=== PATIENT | female | born 1985 | race Caucasian/White ===

== ENCOUNTER 2023-06-14 01:20 | Inpatient (IN) | payer OTHER ==
[~2023-06-14] VITALS: Ht 172.7 cm; Wt 131.1 kg
[2023-06-14 01:30] VITALS: BP 117/66; PULSE 85; RESP 18; TEMP 97.9
[2023-06-14] MEDS ORDERED: CARBOPROST 250 MCG/ML AMP IM PRN (01:45)
[2023-06-14] MEDS ORDERED: LACTATED RINGERS 500 ML IV SCH (01:45)
[2023-06-14] MEDS ORDERED: METHYLERGONOVINE 0.2 MG/ML AMP IM PRN ×2 (01:45→09:35)
[2023-06-14 02:11] LABS: APPEARANCE,URINE CLEAR (CLEAR); BILIRUBIN,URINE NEGATIVE (NEGATIVE); BLOOD, URINE TRACE-I (NEGATIVE); COLOR,URINE YELLOW (YELLOW); LEUKOCYTE ESTERASE ,URINE NEGATIVE (NEGATIVE); NITRITE, URINE NEGATIVE (NEGATIVE); PROTEIN,URINE NEGATIVE (NEGATIVE); UGLUCOSE NEGATIVE (NEGATIVE); UROBILINOGEN,URINE 0.2 EU/dL (0.2 - 1)
[2023-06-14 02:13] LABS: BASOPHILS % (AUTO) 0.4 % (0.0-2.0); EOSINOPHILS # (AUTO) 0.1 K/uL (0-0.4); EOSINOPHILS % (AUTO) 0.6 % (0.0-4.0); HEMATOCRIT 38.7 % (36-48); HEMOGLOBIN 13.1 g/dL (12.0-16.0); LYMPHOCYTES % (AUTO) 25.3 % (20.5-51.1); MEAN CORPUSCULAR HEMOGLOBIN 30 pg (27-31); MEAN CORPUSCULAR HGB CONC 34 g/dL (33-37); MEAN CORPUSCULAR VOLUME 87.2 fL (80-94); MONOCYTES # (AUTO) 1.2 K/uL (0.8-1.0); MONOCYTES % (AUTO) 9.8 % (1.7-9.3); NEUTROPHILS # (AUTO) 7.7 K/uL (1.8-7.7); NEUTROPHILS % (AUTO) 63.9 % (42.2-75.2); PLATELET COUNT (AUTO) 227 K/uL (140-450); RED BLOOD CELL COUNT(AUTO) 4.44 MIL/uL (4.20-5.40)
[2023-06-14 02:15] LABS: BACTERIA,URINE FEW /HPF (None Seen); MUCUS,URINE 1+ /LPF (None Seen); WBC,URINE 0-5 /HPF (0-5)
[2023-06-14] MEDS ORDERED: OXYTOCIN 20 UNITS/LR PREMIX 1,000 ML IV ONE (02:24)
[2023-06-14 02:27] LABS: INR 0.87 (0.8-1.2); PARTIAL THROMBOPLASTIN TIME 24.5 secs (22-35.6); PROTHROMBIN TIME 9.2 secs (10.8-13.4)
[2023-06-14 02:29] LABS: ALBUMIN 2.4 g/dL (3.4-5.0); ANION GAP 9.1 (8-16); CALCIUM 9.1 mg/dL (8.5-10.1); CREATININE 0.9 mg/dL (0.6-1.3); POTASSIUM 4.1 mmol/L (3.5-5.1); TOTAL BILIRUBIN 0.3 mg/dL (0.0-1.0); TOTAL PROTEIN, SERUM 7.7 g/dL (6.4-8.2)
[2023-06-14] MEDS ORDERED: AMPICILLIN 2,000 MG VIAL ONE (02:30)
[2023-06-14] MEDS: LACTATED RINGERS 1,000 ML IV SCH (02:37)
[2023-06-14] MEDS: AMPICILLIN 2,000 MG in NACL 0.9% MINI-BAG PLUS 100 ML IV SCH (02:42)
[2023-06-14] MEDS: OXYTOCIN 20 UNITS in LACTATED RINGERS 1,000 ML IV SCH (02:48)
[2023-06-14] MEDS ORDERED: AMPICILLIN 1,000 MG in NACL 0.9% MINI-BAG PLUS 50 ML IV SCH (04:00)
[2023-06-14] MEDS ORDERED: VITAMIN D (04:56)
[2023-06-14] MEDS ORDERED: FERR-252 PO (04:56)
[2023-06-14] MEDS ORDERED: PREN-543 PO (04:56)
[2023-06-14] MEDS ORDERED: MAGNESIUM (04:56)
[2023-06-14] MEDS ORDERED: LIDOCAINE 1% 500 MG/50 ML VIAL ONE (05:24)
[2023-06-14 05:27] VITALS: BP 146/76; PULSE 77
[2023-06-14] MEDS: MORPHINE SULFATE 10 MG/ML VIAL IVP PRN (05:27)
[2023-06-14] MEDS: ONDANSETRON 4 MG/2 ML VIAL IVP PRN (05:28)
[2023-06-14] MEDS ORDERED: AMPICILLIN 1,000 MG VIAL ONE (06:43)
[2023-06-14] MEDS ORDERED: METHYLERGONOVINE 0.2 MG TAB PO PRN (09:35)
[2023-06-14] MEDS ORDERED: OXYTOCIN 10 UNITS/ML VIAL IM PRN (09:35)
[2023-06-14] MEDS ORDERED: MEASLES, MUMPS, AND RUBELLA 1 VIAL SQVAC ONE (09:35)
[2023-06-14] MEDS ORDERED: IBUPROFEN 800 MG TAB PO PRN (09:35)
[2023-06-14] MEDS ORDERED: BENZOCAINE/MENTHOL 20%-0.5% 60 GM CAN TP PRN (09:35)
[2023-06-15 05:51] LABS: HEMATOCRIT 32.9 % (36-48); HEMOGLOBIN 11.4 g/dL (12.0-16.0)
== END 2023-06-15 14:06 | disposition home or self-care (01) | DRG 560 ==
LOC: MLD 01:20 → MFCC 08:46
PROVIDERS: ADMIT Obstetrics & Gynecology; ATTEND Obstetrics & Gynecology
PROC: 10E0XZZ Delivery of Products of Conception, External Approach (ICD-10-PCS; principal; 2023-06-14)
PROC: 3E0R3BZ Introduction of Anesthetic Agent into Spinal Canal, Percutaneous Approach (ICD-10-PCS; 2023-06-14)
PROC: 00HU33Z Insertion of Infusion Device into Spinal Canal, Percutaneous Approach (ICD-10-PCS; 2023-06-14)
DX: O99.214 Obesity complicating childbirth (principal); Z37.0 Single live birth; O42.92 Full-term premature rupture of membranes, unspecified as to length of time between rupture and onset of labor; Z20.822 Contact with and (suspected) exposure to COVID-19; Z3A.39 39 weeks gestation of pregnancy
CPT/HCPCS: 36415; 59409; 80053; 81001; 85018; 85025; 85610; 85730; 86592; 86886; 86900; 86901; J0290; J2001; J2270; J2405; J2590; J7120